=== PATIENT | female | born 1945 | race Caucasian/White ===

== ENCOUNTER 2016-12-13 14:33 | Outpatient (CLI) | payer MEDICARE, OTHER | END 2016-12-13 14:34 | disposition home or self-care (01) | DX: E11.40 Type 2 diabetes mellitus with diabetic neuropathy, unspecified (principal); E78.00 Pure hypercholesterolemia, unspecified ==

== ENCOUNTER 2016-12-13 17:25 | Emergency (ER) | payer MEDICARE, OTHER ==
[2016-12-13] MEDS: SODIUM CHLORIDE 0.9% 1,000 ML IV ONE (19:48)
== END 2016-12-13 22:15 | disposition home or self-care (01) ==
DX: E11.65 Type 2 diabetes mellitus with hyperglycemia (principal); Z79.84 Long term (current) use of oral hypoglycemic drugs; E86.0 Dehydration; D72.829 Elevated white blood cell count, unspecified; I10 Essential (primary) hypertension; J44.9 Chronic obstructive pulmonary disease, unspecified; Z79.82 Long term (current) use of aspirin; E11.40 Type 2 diabetes mellitus with diabetic neuropathy, unspecified; E78.00 Pure hypercholesterolemia, unspecified

== ENCOUNTER 2017-01-26 08:00 | Outpatient (CLI) | payer MEDICARE, OTHER | END 2017-01-26 08:01 | DX: M25.50 Pain in unspecified joint (principal); D72.829 Elevated white blood cell count, unspecified ==

== ENCOUNTER 2017-01-28 15:28 | Outpatient (CLI) | payer MEDICARE, OTHER | END 2017-01-28 15:29 | disposition home or self-care (01) | DX: M17.0 Bilateral primary osteoarthritis of knee (principal); M25.462 Effusion, left knee; M25.461 Effusion, right knee ==

== ENCOUNTER 2017-02-15 21:40 | Emergency (ER) | payer MEDICARE, OTHER ==
[2017-02-15 23:24] LABS: BILIRUBIN,URINE NEGATIVE (NEGATIVE); UA CHARGE (STRIP ONLY) YES; UR CULTURE IF IND NOT INDICATED
--- NOTE | 2017-02-15 23:29 | ED Physician Documentation ---
PD HPI ABD PAIN - Stated complaint Stated Complaint: RT SIDE PAIN - Chief complaint Chief Complaint: Abd Pain - History obtained from History obtained from: Patient - History of Present Illness Timing - onset: How many days ago (2-3) Timing - duration: Days Timing - details: Gradual onset, Waxing and waning Pain level now: 6 Quality: Sharp, Pain Location: RLQ Radiation: Right flank Improved by: Other (no ameliorating factors) Worsened by: Other (no exacerbating factors) Associated symptoms: No: Fever, Nausea, Vomiting Similar symptoms before: Has not had sx before Recently seen: Not recently seen Review of Systems Constitutional: denies: Fever, Chills, Sweats Cardiac: reports: Reviewed and negative Respiratory: reports: Reviewed and negative GI: reports: Abdominal Pain. denies: Nausea, Vomiting : denies: Dysuria, Frequency PD PAST MEDICAL HISTORY - Past Medical History Cardiovascular: Hypertension Respiratory: COPD Neuro: None Endocrine/Autoimmune: Type 2 diabetes GI: None HERPETOLOGIST: None : None HEENT: None Psych: None Musculoskeletal: Other Derm: None - Past Surgical History Past Surgical History: Yes General: Cholecystectomy, Appendectomy, Other Ortho: Other /HERPETOLOGIST: Hysterectomy - Present Medications Home Medications: Ambulatory Orders Medication Instructions Recorded Confirmed Aspirin [Aspir-Low] 12/13/16 Cyclobenzaprine HCl 12/13/16 Dulaglutide [Trulicity] 12/13/16 Epinephrine [Epipen 2-Brock] 12/13/16 Glipizide 12/13/16 Ibuprofen 12/13/16 Lisinopril 12/13/16 Metformin HCl 500 mg PO DAILY 12/13/16 12/13/16 Nitroglycerin 12/13/16 Pregabalin [Lyrica] 12/13/16 - Allergies Allergies/Adverse Reactions: Allergies Allergy/AdvReac Type Severity Reaction Status Date / Time Penicillins Allergy Unknown Verified 12/13/16 17:40 - Social History Does the pt smoke?: No Smoking Status: Never smoker Does the pt drink ETOH?: No Does the pt have substance abuse?: No - Immunizations Immunizations are current?: No - POLST Patient has POLST: No PD ED PE NORMAL - Vitals Vital signs reviewed: Yes - General General: Alert and oriented X 3, No acute distress, Well developed/nourished - Cardiac Cardiac: RRR, No murmur - Respiratory Respiratory: No respiratory distress, Clear bilaterally - Abdomen Abdomen: Soft, Non tender, Other (mild RLQ tenderness without rebound or guarding) - Back Back: No CVA TTP Results - Vitals Vitals: Oxygen O2 Source Room air - Labs Labs: Laboratory Tests 02/15/17 02/15/17 02/15/17 23:14 23:21 23:21 WBC 17.0 H RBC 4.76 Hgb 13.3 Hct 40.3 MCV 84.7 MCH 27.9 MCHC 33.0 RDW 13.9 Plt Count 321 MPV 8.5 Neut # 10.3 H Lymph # 5.1 H [place] # 0.9 Eos # 0.3 Baso # 0.4 H Absolute Nucleated RBC 0.01 Nucleated RBCs 0.0 Sodium 133 L Potassium 4.1 Chloride 95 L Carbon Dioxide 29 Anion Gap 9.0 BUN 14 Creatinine 0.6 Estimated GFR (MDRD) 99 Glucose 302 H Calcium 8.8 Total Bilirubin 0.4 AST 29 ALT 32 Alkaline Phosphatase 69 Total Protein 7.3 Albumin 3.4 Globulin 3.9 Albumin/Globulin Ratio 0.9 L Lipase 11 L Urine Color YELLOW Urine Clarity CLEAR Urine pH 7.0 Ur Specific [place] 1.015 Urine Protein NEGATIVE Urine Glucose (UA) 500 H Urine Ketones NEGATIVE Urine Occult Blood NEGATIVE Urine Nitrite NEGATIVE Urine Bilirubin NEGATIVE Urine Urobilinogen 0.2 (NORMAL) Ur Leukocyte Esterase NEGATIVE Ur Microscopic Review NOT INDICATED Urine Culture Comments NOT INDICATED - Rads (name of study) CT A/P Radiology: Prelim report reviewed, See rad report PD MEDICAL DECISION MAKING - ED course Complexity details: reviewed results, re-evaluated patient, considered differential, d/w patient Departure - Departure Disposition: 01 Home, Self Care Clinical Impression: Abdominal pain Condition: Good Instructions: ED Abdominal Pain Unkn Cause Follow-Up: [facility] [Provider Group] [facility] [Provider Group] Discharge Date/Time: 02/16/17 03:51
[2017-02-16 00:01] LABS: ALBUMIN/GLOBULIN RATIO 0.9 (1.0-2.2); BILIRUBIN,TOTAL 0.4 mg/dL (0.2-1.0); CALCIUM 8.8 mg/dL (8.5-10.3); CREATININE 0.6 mg/dL (0.4-1.0); POTASSIUM 4.1 mmol/L (3.5-5.0); TOTAL PROTEIN 7.3 g/dL (6.7-8.2)
[2017-02-16 00:02] LABS: BASOPHILS # (AUTO) 0.4 10^3/uL (0.0-0.1); BASOPHILS % (AUTO) 2.1 %; EOSINOPHILS # (AUTO) 0.3 10^3/uL (0.0-0.7); HCT - HEMATOCRIT 40.3 % (37.0-47.0); HGB - HEMOGLOBIN 13.3 g/dL (12.0-16.0); LYMPHOCYTES # (AUTO) 5.1 10^3/uL (1.5-3.5); MEAN CORPUSCULAR HEMOGLOBIN 27.9 pg (27.0-31.0); MEAN CORPUSCULAR VOLUME 84.7 fL (81.0-99.0); MEAN PLATELET VOLUME 8.5 fL (7.9-10.8); MONOCYTES # (AUTO) 0.9 10^3/uL (0.0-1.0); MONOCYTES % (AUTO) 5.2 %; NEUTROPHILS # (AUTO) 10.3 10^3/uL (1.5-6.6); NEUTROPHILS % (AUTO) 60.7 %; RED BLOOD COUNT 4.76 10^6/uL (4.20-5.40); RED CELL DISTRIBUTION WIDTH 13.9 % (12.0-15.0)
[2017-02-16] MEDS ORDERED: IOPAMIDOL-300 100 ML VIAL IVP ONE (00:47)
--- NOTE | 2017-02-16 01:23 | CT Preliminary Report ---
Exam: CT Abdomen/Pelvis W/ IMPRESSION: 1. Fatty liver. No mass. 2. Status post hysterectomy and cholecystectomy. 3. No bowel obstruction. [facility] SITE ID: [id number]
--- NOTE | 2017-02-16 01:40 | CT Report ---
EXAM: CT ABDOMEN AND PELVIS EXAM DATE: 02/16/2017 12:31 AM. CLINICAL HISTORY: RLQ abdominal pain. COMPARISONS: None. TECHNIQUE: Routine helical CT imaging was performed through the abdomen and pelvis. IV contrast: 100 mL of Isovue-370. Enteric contrast: No. Reconstructions: Coronal and sagittal. In accordance with CT protocol optimization, one or more of the following dose reduction techniques w ere utilized for this exam: automated exposure control, adjustment of mA and/or KV based on patient s ize, or use of iterative reconstructive technique. FINDINGS: Lung Bases: Mild cardiac enlargement. No effusions. Liver: Fatty liver. No mass or intrahepatic bile duct dilation present. Gallbladder/Bile Ducts: Gallbladder is absent. No common bile duct dilation noted. Spleen: Normal. Pancreas: Fatty infiltration of an atrophic pancreas. Adrenal Glands: Normal. Kidneys: Normal. No masses or hydronephrosis. Simple renal cysts are noted. Peritoneal Cavity/Bowel: Normal. No free fluid, free air or adenopathy. No masses or acute inflammato ry process. Appendix not seen. No right lower quadrant inflammation. Pelvic Organs: Uterus and ovaries are absent. The bladder and visualized pelvic organs are within nor mal limits. Vasculature: Diffuse atheromatous plaques are present in the abdominal aorta and branch vessels. No a neurysm. Normal IVC. Bones: No significant abnormality. Other: None. IMPRESSION: 1. Fatty liver. No mass. 2. Status post hysterectomy and cholecystectomy. 3. No bowel obstruction. [facility] Referring Provider Line: [phone] SITE ID: [id number]
[2017-02-16 03:09] VITALS: BP 120/42
[2017-02-16] MEDS ORDERED: HYDROcod/ACET 5/325 Prepack 6 PO STA (03:31)
[2017-02-16] MEDS ORDERED: HYDROcod/ACET 5/325 Prepack 6 PO ONE (03:34)
== END 2017-02-16 03:51 | disposition home or self-care (01) ==
LOC: ED 21:40
DX: R10.31 Right lower quadrant pain (principal); K76.0 Fatty (change of) liver, not elsewhere classified; Z90.710 Acquired absence of both cervix and uterus; Z90.49 Acquired absence of other specified parts of digestive tract; I10 Essential (primary) hypertension; E11.9 Type 2 diabetes mellitus without complications; Z79.84 Long term (current) use of oral hypoglycemic drugs; Z79.82 Long term (current) use of aspirin
CPT/HCPCS: 36415; 74177; 80053; 81003; 83690; 85025; 99283; Q9967; 81001; 87086

== ENCOUNTER 2017-05-26 14:45 | Outpatient (CLI) | payer MEDICARE, OTHER ==
--- NOTE | 2017-05-27 09:44 | XRAY Report ---
THREE-VIEW LUMBAR SPINE: 05/26/2017 CLINICAL INDICATION: Back pain. FINDINGS: AP, lateral, coned-down views of the lumbar spine demonstrate moderate degenerative disc a nd facet disease. There is no evidence of compression fracture or subluxation. Vascular calcificati ons are present. IMPRESSION: MODERATE DEGENERATIVE CHANGES. JOB #: [id number] EXT JOB #:[id number]
--- NOTE | 2017-05-27 09:45 | XRAY Report ---
THREE VIEW RIGHT SHOULDER: 05/26/2017 CLINICAL INDICATION: Pain. FINDINGS: Internal and external rotational views and a scapular Y view of the right shoulder demonst rate degenerative changes of the acromioclavicular joint. The humeral head is high-riding, suggestive of chronic rotator cuff tear. There is no evidence of acute fracture. IMPRESSION: HIGH-RIDING HUMERAL HEAD, SUGGESTIVE OF A CHRONIC ROTATOR CUFF TEAR. OSTEOARTHRITIS. JOB #: [id number] EXT JOB #:[id number]
== END 2017-05-26 14:46 | disposition home or self-care (01) ==
LOC: DI 14:45
PROVIDERS: ATTEND Family Medicine
DX: M54.5 Low back pain (principal); M51.36 Other intervertebral disc degeneration, lumbar region; M25.511 Pain in right shoulder; M19.011 Primary osteoarthritis, right shoulder; R13.10 Dysphagia, unspecified
CPT/HCPCS: 72100

== ENCOUNTER 2017-06-01 09:06 | Outpatient (CLI) | payer MEDICARE, OTHER ==
[2017-06-01] MEDS ORDERED: BARIUM SULFATE 135 ML BOTTLE PO ONE (09:56)
[2017-06-01] MEDS ORDERED: BARIUM SULFATE 176 GM BOTTLE PO ONE (09:56)
--- NOTE | 2017-06-01 12:14 | XRAY Report ---
ESOPHAGRAM: 06/01/2017 CLINICAL INDICATION: Dysphagia. FINDINGS: Esophagram was performed in the upright and prone positions. The esophagus is normal in ca liber and contractility. No esophageal ulceration, mass lesion, or stricturing is identified. The hyp opharynx appears unremarkable. There is a small sliding hiatal hernia present, which produced reflux during the course of the study. A 13 mm barium pill passed freely through the esophagus and into the stomach. IMPRESSION: SMALL SLIDING HIATAL HERNIA, PRODUCING REFLUX. NO EVIDENCE OF ULCERATION OR MASS LESION. FLUOROSCOPY TIME: 2 MINUTES 29 SECONDS; 18 SPOT IMAGES OBTAINED. JOB #: [id number] EXT JOB #:[id number]
== END 2017-06-01 09:07 | disposition home or self-care (01) ==
LOC: DI 09:06
PROVIDERS: ATTEND Family Medicine
DX: R13.10 Dysphagia, unspecified (principal); K44.9 Diaphragmatic hernia without obstruction or gangrene; M54.5 Low back pain; G89.29 Other chronic pain; M51.36 Other intervertebral disc degeneration, lumbar region; M25.511 Pain in right shoulder
CPT/HCPCS: 74220; A9270

== ENCOUNTER 2017-06-08 10:20 | Emergency (ER) | payer MEDICARE, OTHER ==
[2017-06-08 10:26] VITALS: BP 117/76
--- NOTE | 2017-06-08 10:35 | ED Physician Documentation ---
PD HPI SKIN - Stated complaint Stated Complaint: L LEG PX - Chief complaint Chief Complaint: Ext Problem - History obtained from History obtained from: Patient - History of Present Illness Timing - duration: Days Timing - details: Gradual onset, Still present (has had some ulcerative lesion on lower leg that is not healing well despite ointment and wraps. Has had rednesss and weeping the past few days, increased redness since yesterday.) Location: LLE (clark) Quality / character: Burning, Discolored (red), Swelling, Draining Review of Systems Constitutional: denies: Fever, Chills, Myalgias Neurologic: denies: Focal weakness, Numbness PD PAST MEDICAL HISTORY - Past Medical History Past Medical History: Yes Cardiovascular: Hypertension Respiratory: COPD Neuro: None Endocrine/Autoimmune: Type 2 diabetes GI: None WASTE HANDLING TECHNICIAN: None : None HEENT: None Psych: None Musculoskeletal: Other Derm: None - Past Surgical History Past Surgical History: Yes General: Cholecystectomy, Appendectomy, Other Ortho: Other /WASTE HANDLING TECHNICIAN: Hysterectomy - Present Medications Home Medications: Ambulatory Orders Medication Instructions Recorded Confirmed Aspirin [Aspir-Low] 81 mg PO DAILY 12/13/16 06/08/17 Cyclobenzaprine HCl 0 mg PO DAILY 12/13/16 06/08/17 Dulaglutide [Trulicity] 0 mg PO DAILY 12/13/16 06/08/17 Epinephrine [Epipen 2-Brock] 0.3 mg SQ PRN PRN 12/13/16 06/08/17 Glipizide 0 mg PO DAILY 12/13/16 06/08/17 Lisinopril 0 mg PO DAILY 12/13/16 06/08/17 Metformin HCl 500 mg PO DAILY 12/13/16 06/08/17 Nitroglycerin 0.4 mg SL PRN PRN 12/13/16 06/08/17 Pregabalin [Lyrica] 0 mg PO DAILY 12/13/16 06/08/17 HYDROcod/ACETAM 5/325 [Mercedes 5/325] 1 tab PO Q6H PRN #15 tablet 06/08/17 Mupirocin 1 applic TP TID #15 oint...g. 06/08/17 Sulfamethox/Trimeth 800/160 1 each PO BID #14 tablet 06/08/17 [Bactrim Ds 800/160] - Allergies Allergies/Adverse Reactions: Allergies Allergy/AdvReac Type Severity Reaction Status Date / Time Penicillins Allergy Unknown Verified 12/13/16 17:40 - Social History Does the pt smoke?: No Smoking Status: Never smoker Does the pt drink ETOH?: No Does the pt have substance abuse?: No - Immunizations Immunizations are current?: No - POLST Patient has POLST: No PD ED PE NORMAL - Vitals Vital signs reviewed: Yes - General General: Alert and oriented X 3, No acute distress, Well developed/nourished - Derm Derm: Normal color, Warm and dry - Extremities Extremities: Other (left lower anterior clark with rounded area of partial skin breakdown, not to fatty tissue, with redness and some blistering. Mostly clear fluid but small area with purulent drop or so under a roof of skin. This is cultured. No deep tissue tenderness. No calf nor thigh tenderness. ) - Neuro Neuro: Alert and oriented X 3, No motor deficit, No sensory deficit, Normal speech Results - Vitals Vitals: Oxygen O2 Source Room air - Labs Labs: Microbiology 06/08/17 10:54 Wound Culture - Final Leg - Left Strep Agalactiae - (Group B) PD MEDICAL DECISION MAKING - ED course Complexity details: considered differential (wound anterior and no calf pain/ tenderness. She does not seem septic/ill. Clinically low suspicion for DVT. Has color and cap refill in toes though pulse not very brisk, so some vascular insuff likely. ), d/w patient Departure - Departure Disposition: 01 Home, Self Care Clinical Impression: Wound infection Open wound, lower leg Qualifiers: Encounter type: initial encounter Laterality: left Qualified Code(s): S81.802A - Unspecified open wound, left lower leg, initial encounter Condition: Stable Record reviewed to determine appropriate education?: Yes Instructions: ED Staph Infec Abx Tx Only Follow-Up: Jose Arvizu DO [Primary Care Provider] - Prescriptions: Sulfamethox/Trimeth 800/160 [Bactrim Ds 800/160] 1 each PO BID #14 tablet Mupirocin 1 applic TP TID #15 oint...g. HYDROcod/ACETAM 5/325 [Mercedes 5/325] 1 tab PO Q6H PRN #15 tablet PRN Reason: Pain Comments: Cleanse the wound twice a day with soap and water and apply some dressing such as Telfa and wrap. After cleansing apply mupirocin ointment which is a better antibiotic. Also take oral Bactrim twice daily for a week. Recheck with your primary care in the next 2-3 days, call for an appointment. The culture results will be available in 2-3 days and we can see if the treatment needs adjusting. Use Tylenol or ibuprofen if needed for pains and add hydrocodone if needed. Discharge Date/Time: 06/08/17 12:21
[2017-06-08] MEDS ORDERED: SULFAMETH/TRIMETH DS 800/160 MG TABLET PO STA (10:56)
[2017-06-08] MEDS ORDERED: MUPIROCIN 2% OINT 1 GM TOP STA (10:56)
[2017-06-08] MEDS ORDERED: SULFAMETH/TRIMETH DS 800/160 MG TABLET PO ONE (11:12)
[2017-06-08] MEDS ORDERED: MUPIROCIN 2% OINT 1 GM ONE (11:12)
== END 2017-06-08 12:21 | disposition home or self-care (01) ==
LOC: ED 10:20
DX: S81.802A Unspecified open wound, left lower leg, initial encounter (principal); L08.9 Local infection of the skin and subcutaneous tissue, unspecified; X58.XXXA Exposure to other specified factors, initial encounter; I10 Essential (primary) hypertension; J44.9 Chronic obstructive pulmonary disease, unspecified; E11.9 Type 2 diabetes mellitus without complications; Z79.84 Long term (current) use of oral hypoglycemic drugs; Z79.82 Long term (current) use of aspirin
CPT/HCPCS: 87070; 87205; 99283; A9270

== ENCOUNTER 2017-06-14 07:51 | Outpatient (CLI) | payer MEDICARE, OTHER ==
--- NOTE | 2017-06-14 10:54 | MRI Report ---
EXAM: RIGHT SHOULDER MRI WITHOUT CONTRAST EXAM DATE: 06/14/2017 09:18 AM. CLINICAL HISTORY: High riding rt humeral head on xray. Right shoulder pain. COMPARISON: Right shoulder radiography 05/26/2017. TECHNIQUE: Multiplanar, multisequence T1-weighted and fluid-sensitive sequences of the shoulder witho ut contrast. Other: None. FINDINGS: Images are degraded by patient motion artifacts. Acromioclavicular Region: The acromion is unipartite type II without downsloping. Mild osteoarthritis of the acromioclavicular joint with mild juxtaarticular edema and cystic changes, trace amount of ef fusion, without joint separation or significant undersurface hypertrophic spur. Focal full-thickness tear of the inferior acromioclavicular ligament resulting in small amount of fluid extending to the s ubacromial bursa. The coracoacromial and coracoclavicular ligaments are intact. Mild subacromial/subd eltoid bursal fluid. Glenohumeral Region: No subluxation. Humeral head is not high riding. No effusion or loose bodies. Th e articular cartilage is unremarkable. The glenohumeral ligaments and joint capsule are unremarkable. Bone Marrow: No fracture, marrow edema or bone lesions. Subcortical reactive cystic changes and mild edema in the greater tuberosity. Labrum: Abnormal signal in the superior labrum highly suspicious for a SLAP tear although cannot be d efinitively confirmed on this nonarthrographic study. There is subtle abnormal signal in the posterio r labrum, also concerning for labral tear. Musculature/Rotator Cuff: Tendinosis of the supraspinatus and infraspinatus, more significantly in th e supraspinatus with small slitlike focal full-thickness tears and articular surface and bursal surfa ce partial thickness tears in the anterior insertion. The subscapularis and teres minor tendons are i ntact. No edema or significant fatty atrophy. Biceps Tendon: Tendinosis of the intra-articular portion of the long head of the biceps tendon. The b iceps tata is intact. Other: The subcutaneous tissues are unremarkable. IMPRESSION: 1. Tendinosis of the supraspinatus and infraspinatus, more significantly in the supraspinatus with sm all slitlike focal full-thickness tears and articular surface and bursal surface partial thickness te ars in the anterior insertion. 2. Tendinosis of the intra-articular portion of the long head of the biceps tendon. 3. Abnormal signal in the superior labrum highly suspicious for a SLAP tear although cannot be defini tively confirmed on this nonarthrographic study. There is subtle abnormal signal in the posterior lab rum, also concerning for labral tear. MR shoulder arthrogram may be considered for a better evaluatio n of the labrum, if necessary. 4. Focal full-thickness tear of the inferior acromioclavicular ligament resulting in small amount of fluid extending to the subacromial bursa. 5. Mild osteoarthritis of the acromioclavicular joint. [facility] Referring Provider Line: [phone] SITE ID: [id number]
== END 2017-06-14 07:52 | disposition home or self-care (01) ==
LOC: DI 07:51
PROVIDERS: ATTEND Family Medicine
DX: R93.6 Abnormal findings on diagnostic imaging of limbs (principal); M75.81 Other shoulder lesions, right shoulder; S43.51XA Sprain of right acromioclavicular joint, initial encounter; M19.011 Primary osteoarthritis, right shoulder

== ENCOUNTER 2017-09-28 15:12 | Emergency (ER) | payer MEDICARE, OTHER ==
[2017-09-28] MEDS ORDERED: cefTRIAXone 1 GM VIAL IM STA (16:58)
[2017-09-28] MEDS ORDERED: cefTRIAXone 1 GM in SODIUM CHLORIDE 0.9% MINIBAG 100 ML IV STA (16:59)
[2017-09-28 17:23] VITALS: BP 149/66
[2017-09-28 17:30] LABS: BASOPHILS # (AUTO) 0.1 10^3/uL (0.0-0.1); EOSINOPHILS # (AUTO) 0.7 10^3/uL (0.0-0.7); EOSINOPHILS % (AUTO) 4.6 %; HGB - HEMOGLOBIN 13.6 g/dL (12.0-16.0); LYMPHOCYTES # (AUTO) 2.2 10^3/uL (1.5-3.5); LYMPHOCYTES % (AUTO) 14.7 %; MEAN CORPUSCULAR HEMOGLOBIN 28.7 pg (27.0-31.0); MEAN CORPUSCULAR HGB CONC 33.2 g/dL (32.0-36.0); MEAN CORPUSCULAR VOLUME 86.4 fL (81.0-99.0); MEAN PLATELET VOLUME 8.1 fL (7.9-10.8); MONOCYTES # (AUTO) 0.6 10^3/uL (0.0-1.0); MONOCYTES % (AUTO) 3.8 %; NEUTROPHILS # (AUTO) 11.3 10^3/uL (1.5-6.6); NEUTROPHILS % (AUTO) 75.9 %; PLT - PLATELET COUNT 219 10^3/uL (130-450); RED BLOOD COUNT 4.74 10^6/uL (4.20-5.40); RED CELL DISTRIBUTION WIDTH 13.8 % (12.0-15.0); WHITE BLOOD COUNT 14.9 x10^3/uL (4.8-10.8)
[2017-09-28 17:38] LABS: CALCIUM 9.1 mg/dL (8.5-10.3); CREATININE 1.3 mg/dL (0.4-1.0)
--- NOTE | 2017-09-28 18:24 | ED Physician Documentation ---
History of Present Illness - Stated complaint Stated Complaint: LT LEG PX/WEAPING - Chief complaint Chief Complaint: Ext Problem - History obtained from History obtained from: Patient - History of Present Illness Timing: How many days ago (5) - Treatment prior to arrival Treatment prior to arrival: Bactrim. - Additonal information Additional information: The patient is a 72-year-old diabetic female who presents with increasing redness and swelling of her left leg. She has a past history of cellulitis in her lower extremities, and is concerned about recurrence. She was seen in clinic yesterday and was started on Bactrim, of which she has taken 2 doses. 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 She is 2 weeks status post vein stripping of her left leg. She denies fever, chest pain, shortness of breath, or urinary symptoms. Review of Systems Constitutional: denies: Fever Nose: denies: Congestion Throat: denies: Sore throat Cardiac: denies: Chest pain / pressure Respiratory: denies: Dyspnea, Cough GI: denies: Abdominal Pain, Nausea, Vomiting : denies: Dysuria, Frequency Skin: denies: Rash Musculoskeletal: reports: Extremity pain, Extremity swelling Neurologic: denies: Focal weakness, Numbness, Headache PD PAST MEDICAL HISTORY - Past Medical History Cardiovascular: Hypertension, High cholesterol, Angina Respiratory: COPD Neuro: None Endocrine/Autoimmune: Type 2 diabetes GI: Hiatal hernia SENIOR QA ENGINEER: None : None HEENT: Other Psych: None Musculoskeletal: Other Derm: None - Past Surgical History Past Surgical History: Yes General: Cholecystectomy, Appendectomy, Other Ortho: Other /SENIOR QA ENGINEER: Hysterectomy - Present Medications Home Medications: Ambulatory Orders Medication Instructions Recorded Confirmed Epinephrine [Epipen 2-Brock] 0.3 mg SQ PRN PRN 12/13/16 09/28/17 Glipizide 10 mg PO DAILY 12/13/16 09/28/17 Lisinopril 10 mg PO DAILY 12/13/16 09/28/17 Nitroglycerin 0.4 mg SL PRN PRN 12/13/16 09/28/17 Pregabalin [Lyrica] 100 mg PO TID 12/13/16 09/28/17 Dulaglutide [Trulicity] 1.5 mg SQ UD 06/17/17 09/28/17 Metformin HCl [Metformin HCl ER] 2,000 mg PO DAILY 06/17/17 09/28/17 Multivitamin [Multivitamins] 1 tab PO DAILY 06/23/17 09/28/17 diphenhydrAMINE [Benadryl] 50 mg PO Q4HR PRN 06/23/17 09/28/17 Sulfamethox/Trimeth 800/160 1 each PO BID 09/28/17 09/28/17 [Bactrim Ds 800/160] cephALEXin [Cephalexin] 500 mg PO TID #20 tablet 09/28/17 - Allergies Allergies/Adverse Reactions: Allergies Allergy/AdvReac Type Severity Reaction Status Date / Time Penicillins Allergy Severe Anaphylaxis Verified 06/14/17 11:26 bee venom protein (honey bee) Allergy Unknown Verified 09/28/17 15:23 isosorbide Allergy Unknown Verified 09/28/17 15:23 simvastatin Allergy Unknown Verified 09/28/17 15:23 - Social History Does the pt smoke?: Yes Smoking Status: Current every day smoker Does the pt drink ETOH?: No Does the pt have substance abuse?: No - Immunizations Immunizations are current?: No - POLST Patient has POLST: No PD ED PE NORMAL - Vitals Vital signs reviewed: Yes (hypertensive) - General General: Alert and oriented X 3, Well developed/nourished, Other (Ill kempt and overweight.) - HEENT HEENT: Atraumatic, Pharynx benign - Neck Neck: No adenopathy, No JVD - Cardiac Cardiac: RRR, No murmur - Respiratory Respiratory: No respiratory distress, Clear bilaterally - Abdomen Abdomen: Soft, Non tender - Back Back: No CVA TTP - Derm Derm: No rash - Extremities Extremities: Other (There is 2+ edema of the left lower extremity, 1+ edema on the right. There is erythema of the left lower extremity extending from just below the knee to the ankle. There is a superficial skin erosion on the posteromedial aspect of the left lower leg, at the top of where Jobst stockings had been impinging. There is no significant warmth to palpation, and no lymphangitic streaking. Distal neurovascular is intact.) - Neuro Neuro: Alert and oriented X 3, No motor deficit, No sensory deficit Results - Vitals Vitals: Oxygen O2 Source Room air - Labs Labs: Microbiology 09/28/17 16:55 Wound Culture - Final Leg - Left NORMAL Skin Rocio present in culture Laboratory Tests 09/28/17 09/28/17 17:22 17:22 WBC 14.9 H RBC 4.74 Hgb 13.6 Hct 40.9 MCV 86.4 MCH 28.7 MCHC 33.2 RDW 13.8 Plt Count 219 MPV 8.1 Neut # 11.3 H Lymph # 2.2 [place] # 0.6 Eos # 0.7 Baso # 0.1 Absolute Nucleated RBC 0.02 Nucleated RBC % 0.1 Sodium 135 Potassium 4.3 Chloride 94 L Carbon Dioxide 28 Anion Gap 13.0 BUN 22 H Creatinine 1.3 H Estimated GFR (MDRD) 40 L Glucose 182 H Calcium 9.1 PD MEDICAL DECISION MAKING - ED course Complexity details: reviewed old records, reviewed results, re-evaluated patient , considered differential, d/w patient ED course: The patient's presentation is most consistent with cellulitis of the left lower extremity. Venous stasis dermatitis is a consideration, especially given her recent vein stripping procedure. However with her elevated white count of 14.9 , cellulitis is the more likely cause of her swelling and erythema. I do not think deep venous thrombosis as the cause of her symptoms. In addition her glucose is moderately elevated at 182. Treatment in the emergency department included administration of ceftriaxone 1 g IV. She is being discharged with a prescription for cephalexin, which she will take in addition to her previously prescribed Bactrim. A swab of the open wound was obtained and sent to the lab for culture and sensitivity. I discussed with her antibiotic treatment, outpatient follow-up, as well as potentially worrisome signs or symptoms that should prompt reevaluation in the emergency department. Departure - Departure Disposition: 01 Home, Self Care Clinical Impression: Cellulitis of leg without foot, left, Hyperglycemia Diabetes Qualifiers: Diabetes mellitus type: type 2 Diabetes mellitus complication status: with hyperglycemia Diabetes mellitus manager long term care insulin use: without long-term use Qualified Code(s): E11.65 - Type 2 diabetes mellitus with hyperglycemia Condition: Stable Instructions: ED Infec Skin Cellulitis Follow-Up: Jose Arvizu DO [Provider Admit Priv/Credential] - Prescriptions: cephALEXin [Cephalexin] 500 mg PO TID #20 tablet Comments: Keep your leg elevated as much of the time as possible. Take cephalexin as prescribed. Continue taking Bactrim as previously prescribed , until culture results are known, which will likely take 2-3 days. You can use Tylenol if needed for fever or discomfort. Follow up with your primary physician within 1 week. Call to schedule an appointment. Return to the emergency department if you develop increasing redness, swelling, or pain in your leg, or otherwise worsening symptoms. Discharge Date/Time: 09/28/17 18:35
== END 2017-09-28 18:35 | disposition home or self-care (01) ==
LOC: ED 15:12
DX: R22.42 Localized swelling, mass and lump, left lower limb (principal); L03.116 Cellulitis of left lower limb; E11.65 Type 2 diabetes mellitus with hyperglycemia; I10 Essential (primary) hypertension; E78.00 Pure hypercholesterolemia, unspecified; F17.200 Nicotine dependence, unspecified, uncomplicated; Z86.14 Personal history of Methicillin resistant Staphylococcus aureus infection; Z98.890 Other specified postprocedural states
CPT/HCPCS: 36415; 80048; 85025; 87070; 87205; 96365; 99283; 99284